=== PATIENT | female | born 1975 | race Caucasian/White ===

== ENCOUNTER 2024-05-29 16:22 | Emergency (ER) | payer OTHER, SELFPAY ==
[2024-05-29 16:33] VITALS: BP 180/102
[2024-05-29 16:56] LABS: % Basophils 0.6 % (0-2); % Eosinophils 0.6 % (0-6); % Immature Granulocytes 0.4 % (0-0.5); % Lymphocytes 28.5 % (20.5-51.1); % Monocytes 5.2 % (1.7-9.3); % Neutrophils 64.7 % (42.2-75.2); Absolute Basophils 0.1 10^3/uL (0-0.2); Absolute Eosinophils 0.1 10^3/uL (0-0.7); Absolute Immature Granulocytes 0.1 10^3/uL (0-0.05); Absolute Lymphocytes 3.7 10^3/uL (1.2-3.4); Absolute Monocytes 0.7 10^3/uL (0.1-0.6); Absolute Neutrophils 8.4 10^3/uL (1.4-6.5); Hemoglobin 12.5 g/dL (12.0-16.0); Mean Corp Hgb Conc. 33.8 g/dL (33.0-37.0); Mean Corpuscular Hgb 28.9 pg (27.0-31.0); Mean Corpuscular Volume 85.5 fL (81.0-99.0); Mean Platelet Volume 10.1 fL (7.4-10.4); Nucleated Red Blood Cells % 0 %; Platelet Count 302 10^3/uL (130-400); Red Blood Cell Count 4.33 10^6/uL (4.20-5.40); Red Cell Dist. Width 14.1 % (11.5-14.5)
[2024-05-29 17:08] LABS: APTT 25.7 Sec (23.4-35.0); INR 1.04; PT 13.4 Sec (11.4-14.6)
[2024-05-29 17:15] LABS: ALT (SGPT) 34 U/L (0-35); AST (SGOT) 28 U/L (14-36); Albumin 4.4 g/dl (3.5-5.0); Alkaline Phosphatase 61 U/L (38-126); Blood Urea Nitrogen 24 mg/dl (7-17); Calcium 10.2 mg/dl (8.4-10.2); Carbon Dioxide 27 mmol/L (22-30); Chloride 100 mmol/L (98-107); Glucose 158 mg/dl (70-99); Potassium 3.6 mmol/L (3.5-5.1); Sodium 137 mmol/L (135-145); Total Bilirubin 1.6 mg/dl (0.2-1.3); Total Protein 6.5 g/dl (6.3-8.2); eGFR > 60.00
[2024-05-29 17:21] LABS: Troponin I < 0.012 ng/ml
[2024-05-29 17:58] VITALS: BP 148/101; BMI 32.0
[2024-05-29 19:00] VITALS: BP 153/89
[2024-05-29] MEDS: DECADRON 10 MG PO (19:02)
[2024-05-29] MEDS: DUONEB 3 ML INH (19:04)
--- NOTE | 2024-05-29 21:27 | ED.GENMED ---
History of Present Illness
General
Chief Complaint: Breathing Problem
Source: patient
Exam Limitations: none
Time Seen by Provider: 05/29/24 17:43
Nursing documentation reviewed up to this point in time: agreed with
History of Present Illness
History of Present Illness:
Patient to ED with complaint of loss of voice x 2 weeks, throat feels thigh, chest feels tight.States She was seen by ENT and had a nasolaryngoscopy last week. SHe has a teleheath appt on Tuesday to discuss results. Denies fever/chills. History of
asthma, reports compliance with her medications but states they are not helping. Brought to ED by daughter for eval.
Past History
Past History
ED Past Medical History: Asthma, Fibromyalgia, HTN, Hypothyroidism, Psychiatric, Other and Other
ED Past Surgical History: Appendectomy, Cholecystectomy, , Gynecological and Other
Social History
Tobacco: Non-smoker
Alcohol: Occasional
Drug: None
Personal:
Living: with family
Employment: Employed
Family History
Family History: Other
Review of Systems
Review of Systems
Allergies reviewed?: Yes
All Other Systems: ROS reviewed and negative except as documented in HPI and ROS
Constitutional: Reports no symptoms
EENT: Reports other (laryngitis)
Respiratory: Reports trouble breathing and other (Chest tightness)
ABD/GI: Reports no symptoms
: Reports no symptoms
Musculoskeletal: Reports no symptoms
Skin: Reports no symptoms
Neurological: Reports no symptoms
Psychiatric: Reports no symptoms
Phy Exam
General Physical Exam
General Presentation: well appearing and no apparent distress
General age: appears stated age
General Skin: warm and dry
General Habitus: normal
Cardiovascular Exam
Cardiovascular Exam: regular rate/rhythm and no edema
Pulmonary Exam
Pulmonary Exam: lungs clear, no respiratory distress, no rales, chest non tender, no crackles, no rhonchi, no stridor and no wheezing
Musculoskeletal Exam
Musculoskeletal Exam: full ROM and neuro vasc intact
Skin Exam
Skin Exam: normal color, warm/dry and no rash
Psychiatric Exam
Psychiatric Exam: normal mood/affect
Scores
Heart Failure Risk
Heart Failure Risk Score: Not Applicable
Course
Orders/Labs/Results
Orders:
Orders
05/29/24 16:24
EKG [Electrocardiogram (*1)] Urgent
Reason for Study: Shortness of Breath
EKG- Treatment ONCE
CR Chest - 2 Views Urgent
Comment:
Reason For Exam: SOB
05/29/24 16:48
Complete Blood Count/With Diff Urgent
Comprehensive Metabolic Panel Urgent
Protime/PTT Urgent
Troponin I Urgent
05/29/24 18:53
Dexamethasone Pf [Decadron] 10 mg PO NOW STA
05/29/24 18:54
Ipratropium/Albuterol Sulfate [Duoneb] 3 ml INH R NOW STA
Abnormal Lab Results
05/29/24
16:48
WBC 13.0 H 10^3/uL
(4.8-10.8)
Abs Immat Gran (auto) 0.1 H 10^3/uL
(0-0.05)
Absolute Neuts (auto) 8.4 H 10^3/uL
(1.4-6.5)
Absolute Lymphs (auto) 3.7 H 10^3/uL
(1.2-3.4)
Absolute Monos (auto) 0.7 H 10^3/uL
(0.1-0.6)
BUN 24 H mg/dl
(7-17)
Glucose 158 H mg/dl
(70-99)
Total Bilirubin 1.6 H mg/dl
(0.2-1.3)
05/29/24 16:48
05/29/24 16:48
Vital Signs
Initial and Last Documented VS:
Initial Vital Signs
Temp Pulse Resp BP Pulse Ox
98.3 F 104 18 180/102 97
05/29/24 16:33 05/29/24 16:33 05/29/24 16:33 05/29/24 16:33 05/29/24 16:33
Last Documented Vital Signs
Temp Pulse Resp BP Pulse Ox
98.3 F 104 18 153/89 97
05/29/24 16:33 05/29/24 16:33 05/29/24 16:33 05/29/24 19:00 05/29/24 19:00
*Radiology
Radiology exam reviewed: radiology read reviewed
*Pulse Oximetry
Patient hypoxic: no
Comment: 99%RA
*Critical Care Note
Total Time (30-74mins, 75-104mins- exclusive of procedures): Not Applicable
Update Note
Update Note:
Patient to ED with complaint of laryngitis, chst tightness, difficulty taking a deep breath. Labs CXR reviewed. No concerning findings. Pulse ox 99% RA. Nontoxic appearing. In no distress. Given decadron and duoneb in dept. Recommend prednisone
taper and follow up with her glass scullion. Has fu with ENT on tuesday. GIven instructions on s/s to return to ED, questions answered.
ED Attending Note
-
Portions of this chart may have been created with voice recognition software.� Occasional wrong word or��sound alike� substitutions may have occurred due to the inherent limitations of voice recognition software.
Discharge Plan
Departure
Patient Disposition: Home (Routine Discharge)
Date of Disposition: 05/29/24
Time of Disposition: 19:56
Patient with high blood pressure during this ER visit?: No
Condition: Good
Covid-19: Not Applicable
Discharge Problem:
Acute asthma exacerbation
Instructions: Asthma, Adult (DC)
Prescriptions:
New
prednisone 10 mg Tablet
See Rx Instructions .ROUTE .COMPLEX Qty: 45 0RF
Rx Instructions:
Take By Mouth:
50 mg daily x3 days, 40 mg daily x3 days,
30 mg daily x3 days, 20 mg daily x3 days,
10 mg daily x3 days
No Action
cholecalciferol (vitamin D3) 2,000 UNIT tablet
5,000 unit PO DAILY
B-100 Complex 100 MG tablet extended release
100 mg PO DAILY
atorvastatin 20 mg tablet
20 mg PO DAILY
cetirizine 10 mg tablet
20 mg PO DAILY
montelukast 10 mg tablet
10 mg PO DAILY
fluoxetine 20 mg capsule
20 mg PO DAILY
losartan-hydrochlorothiazide 100-12.5 mg tablet
1 tab PO DAILY
omega 2-[id number]-[id number]-fish oil [Fish Oil] 1,000 mg (120 mg-180 mg) Capsule
1 cap PO HS
doxycycline hyclate 50 mg tablet
50 mg PO DAILY
albuterol sulfate 2.5 mg /3 mL (0.083 %) solution for nebulization
2.5 mg inhalation R Q4 PRN (Reason: sob/wheezing)
levothyroxine [Synthroid] 175 mcg Tablet
175 mcg PO .QOTHER DAY
Spiriva Respimat 2.5 mcg/actuation Mist
2 puff inhalation R DAILY 30 Days Qty: 4 0RF
cyclobenzaprine 10 mg Tablet
10 mg PO HS
metformin 500 mg Tablet
500 mg PO BID
sumatriptan succinate [Imitrex] 100 mg Tablet
100 mg PO ONCE PRN (Reason: Migraines)
amlodipine 5 mg Tablet
5 mg PO DAILY
albuterol sulfate 90 mcg/actuation Hfa Aerosol Inhaler
2 puff INHALATION 6XD PRN (Reason: SOB)
escitalopram oxalate [Lexapro] 5 mg Tablet
5 mg PO HS
riboflavin (vitamin B2) 400 mg Tablet
400 mg PO HS
magnesium
400 mg PO HS
Referrals:
UNKNOWN - PT DOES,NOT KNOW [Unknown Provider] -
Activity Restrictions/Additional Instructions:
Follow up with your glass scullion in the AM
Interventions
Interventions:
*Risk Screen - Suicide Last Done: 05/29/24 16:33
*General Assessment Last Done: 05/29/24 16:33
*Neglect/Abuse Screening Last Done: 05/29/24 16:33
ED- Fall Risk Assessment Last Done: 05/29/24 18:01
*ED COVID-19 Vaccine History Last Done: 05/29/24 16:33
*Nursing Disposition Last Done: 05/29/24 20:02
ED- Cardiac Assessment Last Done: 05/29/24 18:01
ED- Pulmonary Assessment Last Done: 05/29/24 18:01
Discharge Date and Time
Discharge Date/Time: 05/29/24 20:06
Print Language: TELUGU
== END 2024-05-29 20:06 | disposition home or self-care (01) ==
LOC: EMR 16:22
PROVIDERS: Emergency Medicine; EMERGENCY PHYSICIAN Emergency Medicine; FAMILY PHYSICIAN Physician Assistant Medical
DX: J45.901 Unspecified asthma with (acute) exacerbation (principal); I10 Essential (primary) hypertension; M79.7 Fibromyalgia; K57.92 Diverticulitis of intestine, part unspecified, without perforation or abscess without bleeding; K21.9 Gastro-esophageal reflux disease without esophagitis; K58.9 Irritable bowel syndrome, unspecified; M19.90 Unspecified osteoarthritis, unspecified site; E06.3 Autoimmune thyroiditis; F41.9 Anxiety disorder, unspecified; F32.A Depression, unspecified; G43.909 Migraine, unspecified, not intractable, without status migrainosus; E78.5 Hyperlipidemia, unspecified; G47.30 Sleep apnea, unspecified; Z98.890 Other specified postprocedural states; Z87.891 Personal history of nicotine dependence; Z90.49 Acquired absence of other specified parts of digestive tract; Z88.1 Allergy status to other antibiotic agents; Z88.0 Allergy status to penicillin; Z88.8 Allergy status to other drugs, medicaments and biological substances; Z91.048 Other nonmedicinal substance allergy status
CPT/HCPCS: 99284; 94640; 71046; 80053; 84484; 85025; 85610; 85730; 93005

== ENCOUNTER → 2024-07-04 17:29 | Outpatient (REF) | payer OTHER, SELFPAY | LOC: RAD 17:29 | PROVIDERS: ATTENDING PHYSICIAN Physician Assistant Medical | DX: R05.1 Acute cough (principal) | CPT/HCPCS: 71046 ==

== ENCOUNTER → 2024-12-25 18:37 | Outpatient (REF) | payer OTHER, SELFPAY | LOC: WDC 18:37 | PROVIDERS: ATTENDING PHYSICIAN Physician Assistant Medical | DX: Z12.31 Encounter for screening mammogram for malignant neoplasm of breast (principal) | CPT/HCPCS: 77063; 77067 ==